=== PATIENT | female | born 1945 | race American Indian/Alaskan Native ===

== ENCOUNTER 2016-12-08 07:16 | Emergency (ER) | payer MEDICARE ==
[2016-12-08] MEDS ORDERED: MOTRIN PO ONE (08:19)
[2016-12-08] MEDS ORDERED: TYLENOL PO ONE (08:32)
--- NOTE | 2016-12-08 08:47 | Emergency Department Report ---
ED Lower Extremity HPI - General Chief Complaint: Extremity Injury, Lower Stated Complaint: ACCESS CLOTTED Time Seen by Provider: 12/08/16 07:54 Source: EMS Mode of arrival: Stretcher Limitations: Physical Limitation - History of Present Illness Initial Comments: 71-year-old female with a known history of dialysis here with complaint of left leg pain. Patient has a known history of multiple medical problems including AKA of the left knee. Complains of pain in his leg and states she's had it for the last 5 months. Denies fevers chills. There is no drainage from the wound repair. MD Complaint: other (leg pain) Associated Symptoms: swelling. denies: snap/pop sensation, numbness - Related Data Home Medications Medication Instructions Recorded Confirmed Last Taken Aspirin [Aspirin BABY CHEW TAB] 81 mg PO QDAY 04/14/14 04/14/14 Unknown Calcium Acetate [Phoslo] 667 mg PO TID 04/14/14 04/14/14 Unknown Citalopram Hydrobromide [celeXA] 20 mg PO DAILY 04/14/14 04/14/14 Unknown Epoetin Dorian [Epogen] 20,000 unit SQ Q7D 04/14/14 04/14/14 Unknown Folic Acid/Vit B Comp W-C [Renal 1 cap PO QDAY 04/14/14 04/14/14 Unknown Caps] Insulin Aspart [NovoLOG 100 4 unit SQ QID 04/14/14 04/14/14 Unknown UNITS/ML VIAL] Iron Sucrose [Venofer] 50 mg IV QWEEK 04/14/14 04/14/14 Unknown Levothyroxine [Synthroid] 75 mcg PO QAM 04/14/14 04/14/14 Unknown Paricalcitol [Zemplar] 2 mcg PO 3XW 04/14/14 04/14/14 Unknown Pravastatin (Nf) [Pravachol (Nf)] 40 mg PO DAILY 04/14/14 04/14/14 Unknown traZODone [Desyrel] 100 mg PO QHS 04/14/14 04/14/14 Unknown Previous Rx's Medication Instructions Recorded Last Taken Type Insulin Glargine,Hum.rec.anlog 6 unit SQ QHS #30 ml 04/23/14 Unknown Rx [Lantus] Allergies Allergy/AdvReac Type Severity Reaction Status Date / Time No Known Allergies Allergy Verified 12/08/16 07:38 ED Review of Systems ROS: Stated complaint: ACCESS CLOTTED Other details as noted in HPI Comment: All other systems reviewed and negative Constitutional: denies: chills, fever Respiratory: denies: cough, shortness of breath Gastrointestinal: denies: abdominal pain, nausea Musculoskeletal: other. denies: back pain, joint swelling, arthralgia ED Past Medical Hx - Past Medical History Hx Hypertension: Yes Hx CVA: Yes (left sided weaknes) Hx Diabetes: Yes Hx Renal Disease: Yes (HD q T, Th, Sat) Hx COPD: Yes Additional medical history: atrial fibrillation - Surgical History Additional Surgical History: hysterectomy - Family History Family history: no significant - Social History Smoking Status: Former Smoker Substance Use Type: None - Medications Home Medications: Home Medications Medication Instructions Recorded Confirmed Last Taken Type Aspirin [Aspirin BABY CHEW TAB] 81 mg PO QDAY 04/14/14 04/14/14 Unknown History Calcium Acetate [Phoslo] 667 mg PO TID 04/14/14 04/14/14 Unknown History Citalopram Hydrobromide [celeXA] 20 mg PO DAILY 04/14/14 04/14/14 Unknown History Epoetin Dorian [Epogen] 20,000 unit SQ Q7D 04/14/14 04/14/14 Unknown History Folic Acid/Vit B Comp W-C [Renal 1 cap PO QDAY 04/14/14 04/14/14 Unknown History Caps] Insulin Aspart [NovoLOG 100 4 unit SQ QID 04/14/14 04/14/14 Unknown History UNITS/ML VIAL] Iron Sucrose [Venofer] 50 mg IV QWEEK 04/14/14 04/14/14 Unknown History Levothyroxine [Synthroid] 75 mcg PO QAM 04/14/14 04/14/14 Unknown History Paricalcitol [Zemplar] 2 mcg PO 3XW 04/14/14 04/14/14 Unknown History Pravastatin (Nf) [Pravachol (Nf)] 40 mg PO DAILY 04/14/14 04/14/14 Unknown History traZODone [Desyrel] 100 mg PO QHS 04/14/14 04/14/14 Unknown History Insulin Glargine,Hum.rec.anlog 6 unit SQ QHS #30 ml 04/23/14 Unknown Rx [Lantus] ED Physical Exam - General Limitations: Physical Limitation General appearance: alert, in no apparent distress, cachectic - Head Head exam: Present: atraumatic, normocephalic - Eye Eye exam: Present: normal appearance - ENT ENT exam: Present: mucous membranes dry - Neck Neck exam: Present: normal inspection - Respiratory Respiratory exam: Present: normal lung sounds bilaterally. Absent: respiratory distress - Cardiovascular Cardiovascular Exam: Present: regular rate, normal rhythm. Absent: systolic murmur, diastolic murmur, rubs, gallop - GI/Abdominal GI/Abdominal exam: Present: soft, normal bowel sounds - Extremities Exam Extremities exam: Present: other (AKA on the left, no evidence of infection tender to palpation in the left leg and no obvious thrill) - Back Exam Back exam: Present: normal inspection - Neurological Exam Neurological exam: Present: alert, oriented X3 - Psychiatric Psychiatric exam: Present: normal affect, normal mood - Skin Skin exam: Present: warm, dry, intact, normal color. Absent: rash ED Course Vital Signs 12/08/16 12/08/16 12/08/16 07:25 07:31 07:41 Temperature 98.8 F Pulse Rate 91 H Respiratory 18 Rate Blood Pressure 151/87 151/87 151/87 O2 Sat by Pulse 98 92 100 Oximetry 12/08/16 12/08/16 12/08/16 07:42 07:47 07:48 Temperature Pulse Rate Respiratory Rate Blood Pressure 151/87 151/87 151/87 O2 Sat by Pulse 100 100 73 L Oximetry 12/08/16 12/08/16 12/08/16 07:50 07:55 07:57 Temperature Pulse Rate Respiratory Rate Blood Pressure 151/87 151/87 151/87 O2 Sat by Pulse 96 100 100 Oximetry 12/08/16 12/08/16 12/08/16 08:00 08:02 08:04 Temperature Pulse Rate Respiratory Rate Blood Pressure 158/85 158/85 158/85 O2 Sat by Pulse 99 100 Oximetry 12/08/16 12/08/16 12/08/16 08:10 08:12 08:14 Temperature Pulse Rate Respiratory Rate Blood Pressure O2 Sat by Pulse 100 95 100 Oximetry 12/08/16 12/08/16 12/08/16 08:17 08:20 08:23 Temperature Pulse Rate Respiratory Rate Blood Pressure 158/85 158/85 O2 Sat by Pulse 99 84 96 Oximetry 12/08/16 12/08/16 12/08/16 08:26 08:28 08:30 Temperature Pulse Rate Respiratory Rate Blood Pressure 158/85 158/85 158/85 O2 Sat by Pulse 100 100 100 Oximetry 12/08/16 12/08/16 12/08/16 08:34 08:36 08:40 Temperature Pulse Rate Respiratory Rate Blood Pressure 158/85 158/85 158/85 O2 Sat by Pulse 100 97 95 Oximetry 12/08/16 12/08/16 12/08/16 08:42 08:46 08:48 Temperature Pulse Rate Respiratory Rate Blood Pressure 158/85 158/85 158/85 O2 Sat by Pulse 98 88 92 Oximetry 12/08/16 12/08/16 12/08/16 08:50 08:54 08:56 Temperature Pulse Rate Respiratory Rate Blood Pressure 158/85 158/85 158/85 O2 Sat by Pulse 98 99 Oximetry 12/08/16 12/08/16 12/08/16 08:59 09:00 09:02 Temperature Pulse Rate Respiratory Rate Blood Pressure 168/75 168/75 168/75 O2 Sat by Pulse 100 92 Oximetry 12/08/16 12/08/16 12/08/16 09:06 09:10 09:15 Temperature Pulse Rate Respiratory Rate Blood Pressure 168/75 168/75 168/75 O2 Sat by Pulse 99 85 Oximetry 12/08/16 12/08/16 12/08/16 09:16 09:18 10:20 Temperature Pulse Rate Respiratory Rate Blood Pressure 168/75 168/75 141/69 O2 Sat by Pulse 90 82 L Oximetry 12/08/16 12/08/16 12/08/16 10:22 10:24 10:26 Temperature Pulse Rate Respiratory Rate Blood Pressure 141/69 141/69 141/69 O2 Sat by Pulse 100 100 99 Oximetry 12/08/16 12/08/16 12/08/16 10:28 10:30 10:34 Temperature Pulse Rate Respiratory Rate Blood Pressure 141/69 141/69 141/69 O2 Sat by Pulse 100 99 89 Oximetry 12/08/16 10:36 Temperature Pulse Rate Respiratory Rate Blood Pressure 141/69 O2 Sat by Pulse 98 Oximetry ED Lower Extremity MDM - Lab Data Result diagrams: 12/08/16 08:41 12/08/16 08:41 Laboratory Results - last 24 hr 12/08/16 12/08/16 12/08/16 08:41 08:41 09:09 WBC 10.8 RBC 3.57 L Hgb 10.7 Hct 33.5 MCV 94 MCH 30 MCHC 32 RDW 20.6 H Plt Count 362 Lymph % (Auto) 12.1 L [place] % (Auto) 7.3 Eos % (Auto) 1.6 Baso % (Auto) 0.7 Lymph # 1.3 [place] # 0.8 Eos # 0.2 Baso # 0.1 Seg Neutrophils % 78.3 H Seg Neutrophils # 8.5 H PT 13.6 INR 0.99 Sodium 141 Potassium 3.7 Chloride 95.8 L Carbon Dioxide 29 Anion Gap 20 BUN 49 H Creatinine 3.4 H Estimated GFR 16 BUN/Creatinine Ratio 14.41 Glucose 77 Calcium 8.4 Total Bilirubin 0.30 AST 21 ALT 11 Alkaline Phosphatase 96 Total Protein 6.6 Albumin 2.5 L Albumin/Globulin Ratio 0.6 Urine Color Urine Turbidity Urine pH Ur Specific [place] Urine Protein Urine Glucose (UA) Urine Ketones Urine Blood Urine Nitrite Urine Bilirubin Urine Urobilinogen Ur Leukocyte Esterase Urine WBC (Auto) Urine RBC (Auto) U Epithel Cells (Auto) Ur Transition Epith Cell Urine Mucus 12/08/16 09:24 WBC RBC Hgb Hct MCV MCH MCHC RDW Plt Count Lymph % (Auto) [place] % (Auto) Eos % (Auto) Baso % (Auto) Lymph # [place] # Eos # Baso # Seg Neutrophils % Seg Neutrophils # PT INR Sodium Potassium Chloride Carbon Dioxide Anion Gap BUN Creatinine Estimated GFR BUN/Creatinine Ratio Glucose Calcium Total Bilirubin AST ALT Alkaline Phosphatase Total Protein Albumin Albumin/Globulin Ratio Urine Color Emely Urine Turbidity Cloudy Urine pH 5.0 Ur Specific [place] 1.016 Urine Protein 100 mg/dl Urine Glucose (UA) >=500 Urine Ketones Neg Urine Blood Lg Urine Nitrite Neg Urine Bilirubin Neg Urine Urobilinogen < 2.0 Ur Leukocyte Esterase Sm Urine WBC (Auto) 58.0 H Urine RBC (Auto) > 182.0 U Epithel Cells (Auto) 5.0 Ur Transition Epith Cell 1 Urine Mucus Few - Medical Decision Making Patient with a known history of end-stage renal disease. She is chronically ill. She feels her dialysis access clotted. Plenty ultrasound check labs and will reassess. Ultrasound shows clot in the loop graft in her left leg. She also has a DVT in her left common femoral vein. Discussed case with Dr. Biggs from vascular surgery and he will see the patient in consult. Discussed case with on-call hospitalist to admit the patient to the hospital. Portions of this chart were dictated with dictation software. There may be dictation errors contained within this note. Critical care attestation.: If time is entered above; I have spent that time in minutes in the direct care of this critically ill patient, excluding procedure time. ED Disposition Clinical Impression: Mechanical complication of AV shunt Disposition: [id number] OP ADMIT IP TO THIS HOSP Is pt being admited?: Yes Referrals: PRIMARY CARE, [Primary Care Provider] - 3-5 Days
[2016-12-08 08:57] LABS: Basophils % (Auto) 0.7 % (0.0-1.8); Eosinophils % (Auto) 1.6 % (0.0-4.3); Hematocrit 33.5 % (30.3-42.9); Hemoglobin 10.7 gm/dl (10.1-14.3); Mean Corpuscular HGB Conc 32 % (30-34); Mean Corpuscular Hemoglobin 30 pg (28-32); Mean Corpuscular Volume 94 fl (79-97); Platelet Count 362 K/mm3 (140-440); Red Blood Count 3.57 M/mm3 (3.65-5.03); White Blood Count 10.8 K/mm3 (4.5-11.0)
[2016-12-08 08:59] LABS: Red Cell Distribution Width 20.6 % (13.2-15.2)
--- NOTE | 2016-12-08 08:59 | XRay Report ---
Left femur: Pain. There is no above the knee amputation. The bones are demineralized. The amputated margin appears generally sharp with no obvious pathologic erosions identified. There are some scattered bone fragments in the stump. The stomach is lobulated with no overt evidence of infection nor ulceration. The SFA is diffusely atherosclerotic with a vascular stent at its distal portion. No prior study for comparison. Impression: Amputation with no overt evidence of infection. Age of amputation is indeterminate.
[2016-12-08 09:20] LABS: Albumin 2.5 g/dL (3.9-5); Albumin/Globulin Ratio 0.6 %; BUN/Creatinine Ratio 14.41; Bilirubin,Total 0.3 mg/dL (0.1-1.2); Calcium 8.4 mg/dL (8.4-10.2); Chloride 95.8 mmol/L (98-107); Potassium 3.7 mmol/L (3.6-5.0); Total Protein 6.6 g/dL (6.3-8.2)
[2016-12-08 09:29] LABS: INR 0.99 (0.87-1.13)
[2016-12-08 09:54] LABS: Bilirubin,Urine NEG (Negative); Blood,Urine LG (Negative); Ketones,Urine NEG (Negative); Leukocyte Esterase,Urine SM (Negative); Mucus,Urine FEW /HPF; Nitrite,Urine NEG (Negative); Urobilinogen,Urine < 2.0 mg/dL (<2.0)
[2016-12-08 09:55] LABS: RBC,Urine > 182.0 /HPF (0.0-6.0)
--- NOTE | 2016-12-08 12:28 | Consultation ---
History of Present Illness - Reason for Consult Consult date: 12/08/16 - History of Present Illness 71 y/o female seen in consult for a left femoral thigh graft clot. She has a h/ o CVA, and was unable to provide any history. No family members were present. I called [facility] and learned that she is a / dialysis patient. She had a normal dialysis Wednesday, and her access was found to be clotted today. The left thigh graft was put in within the last couple of years. Per the dialysis center, she is currently being managed by Dr. Tan for vascular issues. Medications and Allergies Allergies Allergy/AdvReac Type Severity Reaction Status Date / Time No Known Allergies Allergy Verified 12/08/16 07:38 Home Medications Medication Instructions Recorded Confirmed Last Taken Type Aspirin [Aspirin BABY CHEW TAB] 81 mg PO QDAY 04/14/14 04/14/14 Unknown History Calcium Acetate [Phoslo] 667 mg PO TID 04/14/14 04/14/14 Unknown History Citalopram Hydrobromide [celeXA] 20 mg PO DAILY 04/14/14 04/14/14 Unknown History Epoetin Dorian [Epogen] 20,000 unit SQ Q7D 04/14/14 04/14/14 Unknown History Folic Acid/Vit B Comp W-C [Renal 1 cap PO QDAY 04/14/14 04/14/14 Unknown History Caps] Insulin Aspart [NovoLOG 100 4 unit SQ QID 04/14/14 04/14/14 Unknown History UNITS/ML VIAL] Iron Sucrose [Venofer] 50 mg IV QWEEK 04/14/14 04/14/14 Unknown History Levothyroxine [Synthroid] 75 mcg PO QAM 04/14/14 04/14/14 Unknown History Paricalcitol [Zemplar] 2 mcg PO 3XW 04/14/14 04/14/14 Unknown History Pravastatin (Nf) [Pravachol (Nf)] 40 mg PO DAILY 04/14/14 04/14/14 Unknown History traZODone [Desyrel] 100 mg PO QHS 04/14/14 04/14/14 Unknown History Insulin Glargine,Hum.rec.anlog 6 unit SQ QHS #30 ml 04/23/14 Unknown Rx [Lantus] Exam - Constitutional Vitals: Temp Pulse Resp BP Pulse Ox 98.8 F 91 H 18 141/69 98 12/08/16 07:25 12/08/16 07:25 12/08/16 07:25 12/08/16 10:36 12/08/16 10:36 General appearance: Present: no acute distress - EENT ENT: hearing decreased - Extremities Extremities: abnormal (left BKA. Left thight graft without thrill or pulsatility. + left [employer] pulse.) - Psychiatric Psychiatric: other (essentially non verbal. occassionally will answer yes/no questions. Otherwise not oriented to time, place, or person.) Results - Labs CBC & Chem 7: 12/08/16 08:41 12/08/16 08:41 - Imaging and Cardiology Venous US: report reviewed, image reviewed Assessment and Plan As she is under the care of Dr. Tan, we will defer to his judgement regarding the care and maintenance of this patient's left thigh graft. This was conveyed to the ER attending, who will contact him.
[2016-12-08 14:26] VITALS: BP 126/58
--- NOTE | 2016-12-09 13:16 | Vascular Lab Report ---
FISTULA DUPLEX EXAM: REASON FOR EXAM: AVF malfunction with ESRD. NOTE: THE FISTULA IS LOCATED IN THE LEFT lower extremity. COMMENTS ON THE FISTULA: This is a femoral artery inflow to femoral vein outlflow graft. Morphologicaly, there is no large pseudoaneurysms. There is no flow in the graft consistent with complete occlusion. Incidental finding of thrombus protruding into the common femoral vein. IMPRESSION: Occluded left lower extremity AV graft. Thrombus protruding into the common femoral vein.
== END 2016-12-08 17:57 | disposition home or self-care (01) ==
LOC: ED 07:16 → 3B-SURG 11:33 → UNDOADMIN 11:33 → ED 17:57
DX: T82.591A Other mechanical complication of surgically created arteriovenous shunt, initial encounter (principal); M79.605 Pain in left leg; Z86.73 Personal history of transient ischemic attack (TIA), and cerebral infarction without residual deficits; E11.9 Type 2 diabetes mellitus without complications; J44.9 Chronic obstructive pulmonary disease, unspecified; I48.91 Unspecified atrial fibrillation; Z87.891 Personal history of nicotine dependence; Z79.82 Long term (current) use of aspirin
CPT/HCPCS: 36415; 80053; 81001; 85025; 85610; 93990